=== PATIENT | male | born 1965 | race Two or more races ===

== ENCOUNTER 2018-06-23 06:24 | Emergency (ER) | payer BC, OTHER ==
[2018-06-23] MEDS ORDERED: ONDANSETRON 2MG/ML, 2ML IVPush ONE (07:00)
[2018-06-23] MEDS ORDERED: MORPHINE SULFATE 4 MG/ML, 1ML IVPush PRN (07:00)
[2018-06-23] MEDS ORDERED: KETOROLAC 30 MG/1 ML IVPush ONE (07:00)
[2018-06-23] MEDS ORDERED: SODIUM CHLORIDE FLUSH 10ML SYR IVF ONE (07:00)
--- NOTE | 2018-06-23 07:04 | NUR ---
[facility] HAND-OFF REPORT RECEIVED FROM JULIANA PIMENTEL. ASSUMING CARE OF PATIENT.
--- NOTE | 2018-06-23 07:15 | NUR ---
PIV STARTED AND BLOOD DRAWN AND SENT TO LAB. URINE COLLECTED AND SENT TO LAB. PT TO CT AT THIS TIME.
[2018-06-23] MEDS ORDERED: MORPHINE SULFATE 4 MG/ML, 1ML ONE (07:25)
[2018-06-23] MEDS ORDERED: KETOROLAC 30 MG/1 ML ONE (07:25)
[2018-06-23] MEDS ORDERED: ONDANSETRON 2MG/ML, 2ML ONE (07:25)
[2018-06-23 07:28] LABS: MICROSCOPIC AUTO
[2018-06-23 07:29] LABS: CULTURE INDICATED? NO
[2018-06-23 07:33] LABS: ALBUMIN 3.9 g/dL (3.4-5.0); ANION GAP 6 mmol/L (5-15); CALCIUM 8.5 mg/dL (8.5-10.1); CHLORIDE 106 mmol/L (98-107)
[2018-06-23 07:36] LABS: ALANINE AMINOTRANSFERASE 32 U/L (12-78); ALKALINE PHOSPHATASE 100 U/L (45-117); BILIRUBIN,TOTAL 0.7 mg/dL (0.2-1.0); CREATININE 1.14 mg/dL (0.7-1.3); TOTAL PROTEIN 7.4 g/dL (6.4-8.2)
[2018-06-23 07:37] LABS: BASOPHILS # (AUTO) 0.05 x10^3/uL (0-0.1); BASOPHILS % (AUTO) 0 % (0-1); EOSINOPHILS # (AUTO) 0.07 x10^3/uL (0-0.4); EOSINOPHILS % (AUTO) 0 % (1-7); LYMPHOCYTES # (AUTO) 1.64 x10^3/uL (1-3.4); LYMPHOCYTES % (AUTO) 10 % (22-44); MD NO; MEAN CORPUSCULAR HGB CONC 33.5 g/dL (33.2-36.2); MEAN CORPUSCULAR VOLUME 89.8 fL (81-97); MEAN PLATELET VOLUME 8.8 fL (7.4-10.4); MONOCYTES # (AUTO) 0.83 x10^3/uL (0.2-0.8); MONOCYTES % (AUTO) 5 % (2-9); NEUTROPHILS # (AUTO) 13.82 x10^3/uL (1.8-6.8); NEUTROPHILS % (AUTO) 84 % (42-75); PLATELET COUNT 311 x10^3/uL (130-400); RED BLOOD COUNT 5.68 x10^6/uL (4.38-5.82); RED CELL DISTRIBUTION WIDTH 13.6 % (9.4-14.8)
[2018-06-23] MEDS ORDERED: MULT-297 PO (07:38)
[2018-06-23 09:03] VITALS: BP 135/88
== END 2018-06-23 09:05 | disposition home or self-care (01) ==
LOC: ED 08:21
DX: N13.2 Hydronephrosis with renal and ureteral calculous obstruction (principal); R10.31 Right lower quadrant pain; F17.200 Nicotine dependence, unspecified, uncomplicated
CPT/HCPCS: 36415; 74176; 80053; 81001; 83690; 85025; 96374; 96375; 99284; J1885; J2405